=== PATIENT | female | born 1960 | race Native Hawaiian/Other Pacific Islander ===

== ENCOUNTER 2017-05-10 17:17 | Emergency (ER) | payer MEDICAID, MEDICARE ==
[2017-05-10] MEDS ORDERED: HYDROcod/ACETAM 5/325 MG TABLET PO STA (17:34)
--- NOTE | 2017-05-10 17:36 | ED Physician Documentation ---
PD HPI UPPER EXT INJURY - Stated complaint Stated Complaint: LEFT ELBOW PAIN - Chief complaint Chief Complaint: Ext Problem - History obtained from History obtained from: Patient - History of Present Illness Location: Other (57-year-old woman with chronic back and leg pain from arthritis presents with 2 weeks of atraumatic left elbow pain, she points to the olecranon as the site of her pain. There was no specific injury. It is not associated with fevers or chills, she has never had problems with that elbow before. 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 - Present Medications Home Medications: Ambulatory Orders Medication Instructions Recorded Confirmed HYDROcod/ACETAM 5/325 [[place] 5/325] 1 - 2 ea PO Q6H PRN #15 tablet 05/10/17 Meloxicam [Mobic] 7.5 mg PO BIDWM PRN #15 tablet 05/10/17 - Allergies Allergies/Adverse Reactions: Allergies Allergy/AdvReac Type Severity Reaction Status Date / Time No Known Drug Allergies Allergy Verified 05/10/17 17:23 - Social History Does the pt smoke?: Yes Smoking Status: Current every day smoker Does the pt drink ETOH?: No Does the pt have substance abuse?: No - Immunizations Immunizations are current?: Yes - POLST Patient has POLST: No PD ED PE NORMAL - Vitals Vital signs reviewed: Yes - General General: Alert and oriented X 3, No acute distress - Extremities Extremities: Other (Left elbow looks grossly normal, mildly tender over the olecranon. She has good range of motion and and in flexion, but can only extend to about 30 shy of straight.) - Neuro Neuro: Alert and oriented X 3, Normal speech - Psych Psych: Normal mood, Normal affect Results - Vitals Vitals: Vital Signs - 24 hr 05/10/17 17:20 Temperature 36.9 C Heart Rate 112 H Respiratory 18 Rate Blood Pressure 188/102 H O2 Saturation 96 Oxygen O2 Source Room air PD MEDICAL DECISION MAKING - ED course ED course: Tenderness is the worst just medial to the olecranon and she has the worst pain when she forcefully extends her elbow so I suspect she has some tendinitis there. There is no evidence of bursitis or septic joint. She has painless pronation and supination. Departure - Departure Disposition: 01 Home, Self Care Clinical Impression: Left elbow tendinitis Condition: Good Record reviewed to determine appropriate education?: Yes Instructions: ED Tendinitis Calcific Follow-Up: [facility] [Provider Group] Prescriptions: Meloxicam [Mobic] 7.5 mg PO BIDWM PRN #15 tablet PRN Reason: Pain HYDROcod/ACETAM 5/325 [[place] 5/325] 1 - 2 ea PO Q6H PRN #15 tablet PRN Reason: Pain Comments: Your blood pressure was elevated today on check into the emergency department. This does not mean that you have hypertension, it is a common phenomenon to come to the emergency department and have elevated blood pressure. I recommend that she see your primary care physician within the week to have it rechecked when you are feeling better. Do not drink or drive while taking narcotic pain medication. Note that many narcotic pain relievers also contain Tylenol/acetaminophen. Please ensure that your total dose of acetaminophen from all sources does not exceed 3 g (3000 mg) per day. You may get constipated while on this medication. Take a stool softener such as Colace twice a day while you are on it. Also add an ahod-jed-isibkjr laxative such as senna or MiraLAX on any day that you do not have a bowel movement. If you received a narcotic pain medication or sedative while in the emergency department, do not drive for the next 24 hours.
[2017-05-10] MEDS ORDERED: HYDROcod/ACETAM 5/325 MG TABLET ONE (17:40)
[2017-05-10] MEDS ORDERED: HYDROcod/ACET 5/325 Prepack 6 PO STA (18:02)
[2017-05-10] MEDS ORDERED: HYDROcod/ACET 5/325 Prepack 6 PO ONE (18:08)
[2017-05-10 18:16] VITALS: BP 175/95
--- NOTE | 2017-05-10 18:46 | XRAY Preliminary Report ---
Exam: XR Elbow 3 View LT IMPRESSION: Normal elbow radiography. [facility] SITE ID: [id number]
--- NOTE | 2017-05-10 18:49 | XRAY Report ---
EXAM: LEFT ELBOW RADIOGRAPHY EXAM DATE: 05/10/2017 06:02 PM. CLINICAL HISTORY: Pain. COMPARISON: None. TECHNIQUE: 3 views. FINDINGS: Bones: Normal. No fractures or bone lesions. Joints: Normal. No effusion. No subluxation. Soft Tissues: Normal. No soft tissue swelling. IMPRESSION: Normal elbow radiography. [facility] Referring Provider Line: [phone] SITE ID: [id number]
== END 2017-05-10 18:17 | disposition home or self-care (01) ==
LOC: ED 17:17
DX: M77.9 Enthesopathy, unspecified (principal); R03.0 Elevated blood-pressure reading, without diagnosis of hypertension; M19.90 Unspecified osteoarthritis, unspecified site; F17.200 Nicotine dependence, unspecified, uncomplicated
CPT/HCPCS: 73080; 99283; A9270

== ENCOUNTER 2021-01-22 17:10 | Outpatient (CLI) | payer MEDICARE | END 2021-01-22 17:11 | disposition critical access hospital (66) | LOC: EMS 17:10 | DX: R07.9 Chest pain, unspecified (principal); M79.602 Pain in left arm | CPT/HCPCS: A0425; A0427 ==

== ENCOUNTER 2021-03-13 06:39 | Outpatient (CLI) | payer MEDICARE ==
--- NOTE | 2021-03-13 10:49 | Ultrasound Report ---
PROCEDURE: Abdomen Limited INDICATIONS: PAIN BLAT SHOULDER, THYROID NOD, ABN LIVER TEST, C TECHNIQUE: Real-time focused scanning was performed of the abdomen, with image documentation. COMPARISON: None. FINDINGS: Liver is normal in size and show diffusely increased liver parenchymal echotexture suggestive of a he patic steatosis. No discrete hepatic lesion is noted. There is no gallstone. No gallbladder wall thickening or pericholecystic fluid. No sonographic Noguera 's sign. Focal area of comet tail appearance involving nondependent portion of gallbladder wall near fundus. There is no intrahepatic biliary duct dilatation. Common bile duct measures up to 4.4 mm in diameter and is within normal limits. Visualized portion of pancreas shows no gross abnormality. Right kidney measures 11.1 cm in length. There is no renal calculi or hydronephrosis. No solid-appear ing renal lesion. IMPRESSION: 1. Hepatic steatosis, no discrete hepatic lesion. 2. Focal area of comet tail appearance involving nondependent portion of gallbladder wall suggestive of focal adenomyomatosis. No evidence of cholelithiasis or acute cholecystitis. 3. No biliary ductal dilatation. Reviewed by: Win Uribe MD on 03/13/2021 10:48 AM PDT Approved by: Win Uribe MD on 03/13/2021 10:48 AM PDT Station ID: [id number]
--- NOTE | 2021-03-13 10:54 | MRI Report ---
PROCEDURE: Cervical Spine W/O INDICATIONS: PAIN BLAT SHOULDER, THYROID NOD, ABN LIVER TEST, C TECHNIQUE: Noncontrast sagittal T1 spin echo and T2 fast spin echo, sagittal STIR, foraminal oblique sagittal T2 fast spin echo, and axial gradient echo or T2 fast spin echo through the cervical spine. COMPARISON: None. FINDINGS: Image quality: Motion artifact is noted. Alignment and Curvature: There is normal bony alignment. Bone Marrow: Marrow demonstrates normal overall signal. Spinal Cord: Visualized spinal cord has normal size and signal. No cerebellar tonsillar herniation. Paraspinous Soft Tissues: No paravertebral masses. Prevertebral soft tissues are normal in thicknes s. C2-C3: The disc height and disc signal are well preserved. No significant neural foraminal or centr al canal narrowing can be seen. C3-C4: Moderate loss of disc height and signal are seen. Moderate disc osteophyte complex is seen, which is eccentric to the right. Mild to moderate facet hypertrophy is seen. There is moderate to sev ere bilateral neuroforaminal narrowing seen. Moderate central canal narrowing is seen. Associated mass effect is seen upon the ventral spinal cord. C4-C5: At least moderate loss of disc height and disc signal can be seen. Moderate disc osteophyte c omplex is seen, with a central/right disc osteophyte protrusion. Mild to moderate facet hypertrophy i s seen. There is moderate to severe bilateral neuroforaminal narrowing seen. At least moderate centra l canal narrowing is seen, with associated mass effect upon the ventral spinal cord. C5-C6: Moderate loss of disc height and signal are seen. Moderate disc osteophyte complex is seen. Moderate facet hypertrophy is seen. There is moderate to severe left-sided and at least moderate r ight-sided neuroforaminal narrowing seen. At least moderate central canal narrowing is seen. Associa davina mass effect is seen upon the ventral spinal cord. C6-C7: Moderate loss of disc height and signal are seen. Moderate disc osteophyte complex is seen. Moderate facet hypertrophy is seen. There is at least moderate right-sided and mild left-sided ne uroforaminal narrowing seen. Mild to moderate central canal narrowing is seen. C7-T1: No significant abnormality is seen. IMPRESSION: Multiple levels of relatively prominent cervical spine degenerative change can be seen. Reviewed by: Juan Carlos Skinner MD on 03/13/2021 9:53 AM GREG Approved by: Juan Carlos Skinner MD on 03/13/2021 9:53 AM GREG Station ID: [id number]
--- NOTE | 2021-03-13 10:55 | Ultrasound Report ---
PROCEDURE: Head or Neck Soft Tissue INDICATIONS: PAIN BLAT SHOULDER, THYROID NOD, ABN LIVER TEST, C TECHNIQUE: Real-time scanning was performed of the thyroid gland, with image documentation. COMPARISON: None FINDINGS: Right: Thyroid lobe measures 5 x 1.7 x 2.6 cm, and is homogeneous in echotexture. Left: Thyroid lobe measures 4.4 x 1.6 x 1.8 cm, and is homogenous in echotexture. Isthmus: 3 mm thick. Nodule number: One Location: Upper pole of right thyroid lobe Size: 0.5 x 0.3 x 0.5 cm. Composition: Solid Echogenicity: Hypoechoic Shape: Wider than tall. Margins: Smooth Echogenic foci: None Total points: 4 ACR TI-RADS category: 4, moderately suspicious. Nodule number: Two Location: Mid pole of right thyroid lobe Size: 0.5 x 0.2 x 0.5 cm. Composition: Solid Echogenicity: Hypoechoic Shape: wider than tall. Margins: Smooth Echogenic foci: None Total points: 4 ACR TI-RADS category: 4, moderately suspicious. Nodule number: Three Location: Upper to mid pole of right thyroid lobe lateral aspect Size: 0.5 x 0.3 x 0.4 cm. Composition: Solid Echogenicity: Hypoechoic Shape: wider than tall. Margins: Smooth Echogenic foci: Size Total points: 4 ACR TI-RADS category: 4, moderately suspicious Nodule number: Four Location: Right side of isthmus Size: 0.4 x 0.2 x 0.4 cm. Composition: Solid Echogenicity: Size Shape: wider than tall. Margins: Smooth Echogenic foci: None Total points: 4 ACR TI-RADS category: 4, moderately suspicious. Nodule number: 5 Location: Upper pole left thyroid lobe Size: 1 x 0.5 x 0.8 cm. Composition: Solid Echogenicity: Size Shape: wider than tall. Margins: Smooth Echogenic foci: None Total points: 4 ACR TI-RADS category: 4, moderately suspicious. Nodule number: 6 Location: Lower pole of left thyroid lobe Size: 0.4 x 0.3 x 0.4 cm. Composition: Solid Echogenicity: Size Shape: wider than tall. Margins: Smooth Echogenic foci: None Total points: 4 ACR TI-RADS category: 4, moderately suspicious. IMPRESSION: Multiple moderately suspicious small bilateral thyroid nodules as described above measur es up to 1 cm in size. Sonographic follow-up is recommended. ACR TI-RADS definitions and recommendations: TI-RADS 1 (benign): 0 points. FNA not needed. TI-RADS 2 (not suspicious): 2 points. FNA not needed. TI-RADS 3 (mildly suspicious): 3 points. ? FNA if 2.5 cm or larger, follow up if 1.5 cm or larger (at 1, 3, and 5 years). TI-RADS 4 (moderately suspicious): 4-6 points. ? FNA if 1.5 cm or larger, follow up if 1 cm or larger (at 1, 2, 3, and 5 years). TI-RADS 5 (highly suspicious): 7 points or more. ? FNA if 1 cm or larger, follow up if 0.5 cm or larger (every year for 5 years). Reviewed by: Win Uribe MD on 03/13/2021 10:54 AM PDT Approved by: Win Uribe MD on 03/13/2021 10:54 AM PDT Station ID: [id number]
--- NOTE | 2021-03-13 13:13 | XRAY Report ---
PROCEDURE: Shoulder 3 View BILAT INDICATIONS: BILAT SHOULDER PX TECHNIQUE: 3 views of the right shoulder and left shoulder were acquired. COMPARISON: None. FINDINGS: Bones: No fractures or dislocations. No suspicious bony lesions. Visualized ribs appear intact. Mi ld bilateral shoulder acromioclavicular joint osteoarthritis. Soft tissues: Small calcification noted adjacent to the lateral margin of the left humeral head brandon rning for calcific tendinitis.. IMPRESSION: 1. Mild bilateral acromioclavicular joint osteoarthritis. 2. Mild left shoulder rotator cuff calcific tendinitis. Reviewed by: Cathy Daely MD, PhD on 03/13/2021 1:12 PM PDT Approved by: Cathy Daley MD, PhD on 03/13/2021 1:12 PM PDT Station ID: [id number]
== END 2021-03-13 06:40 | disposition home or self-care (01) ==
LOC: DI 06:39
PROVIDERS: ATTEND Nurse Practitioner Family
DX: M47.812 Spondylosis without myelopathy or radiculopathy, cervical region (principal); M50.31 Other cervical disc degeneration, high cervical region; M48.02 Spinal stenosis, cervical region; K76.0 Fatty (change of) liver, not elsewhere classified; R93.2 Abnormal findings on diagnostic imaging of liver and biliary tract; E04.2 Nontoxic multinodular goiter; M19.012 Primary osteoarthritis, left shoulder; M19.011 Primary osteoarthritis, right shoulder; M75.82 Other shoulder lesions, left shoulder

== ENCOUNTER 2021-04-10 10:18 | Outpatient (CLI) | payer MEDICARE ==
--- NOTE | 2021-04-26 13:39 | Mammography Report ---
BILATERAL DIGITAL SCREENING MAMMOGRAM 3D/2D: 04/10/2021 CLINICAL: Routine screening. No prior exams were available for comparison. There are scattered fibroglandular elements in both br easts. No significant masses, calcifications, or other findings are seen in either breast. IMPRESSION: NEGATIVE There is no mammographic evidence of malignancy. A 1 year screening mammogram is recommended. This exam was interpreted at Station ID: [id number]. NOTE: For mammograms, a report in lay terms will be sent to the patient. Approximately 15% of breast malignancies will not be visualized mammographically. In the management of a palpable breast mass, a negative mammogram must not discourage biopsy of a clinically suspicious lesion. Electronically Signed By: Vaughn east/ishmael:04/26/2021 07:17:39 ACR BI-RADS Category 1: Negative [id number] PARENCHYMAL PATTERN: (A) - The breast(s) demonstrate(s) scattered fibroglandular densities. BI-RADS CATEGORY: (1) - 1 RECOMMENDATION: (ANNUAL) - Recommend routine annual screening mammography. [id number] 1 year screening LATERALITY: (B)
== END 2021-04-10 10:19 | disposition home or self-care (01) ==
LOC: DI 10:18
PROVIDERS: ATTEND Nurse Practitioner Family
DX: Z12.31 Encounter for screening mammogram for malignant neoplasm of breast (principal)

== ENCOUNTER 2021-04-10 10:20 | Outpatient (CLI) | payer MEDICARE ==
--- NOTE | 2021-04-10 15:56 | DEXA Report ---
PROCEDURE: Dexa Spine and/or Hip INDICATIONS: ASYMPTOMATIC MENOPAUSAL STATE TECHNIQUE: Dual energy x-ray absorptiometry (DXA) was performed on a ebridge System. Regions measur ed are the AP Spine, femoral neck, and if needed forearm. COMPARISON: None. 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 Patients with diagnosis of osteoporosis or osteopenia should have regular bone mineral density assess ment. For those eligible for Medicare, routine testing is allowed once every 2 years. Testing frequ ency can be increased for patients who have rapidly progressing disease or for those who are receivin g medical therapy to restore bone mass. Reviewed by: Kaylynn Eid MD on 04/10/2021 3:54 PM PDT Approved by: Kaylynn Eid MD on 04/10/2021 3:54 PM PDT Station ID: [id number]
== END 2021-04-10 10:21 | disposition home or self-care (01) ==
LOC: DI 10:20
PROVIDERS: ATTEND Nurse Practitioner Family
DX: Z78.0 Asymptomatic menopausal state (principal); M81.0 Age-related osteoporosis without current pathological fracture

== ENCOUNTER 2021-04-10 13:45 | Emergency (ER) | payer MEDICARE ==
[2021-04-10 13:54] VITALS: BP 142/73
[2021-04-10 14:27] LABS: BASOPHILS % (AUTO) 0.3 %; EOSINOPHILS # (AUTO) 0.1 10^3/uL (0.0-0.7); HCT - HEMATOCRIT 37.4 % (37.0-47.0); HGB - HEMOGLOBIN 12.1 g/dL (12.0-16.0); LYMPHOCYTES # (AUTO) 2.1 10^3/uL (1.5-3.5); LYMPHOCYTES % (AUTO) 29.2 %; MEAN CORPUSCULAR HEMOGLOBIN 28.3 pg (27.0-31.0); MEAN CORPUSCULAR HGB CONC 32.4 g/dL (32.0-36.0); MEAN CORPUSCULAR VOLUME 87.6 fL (81.0-99.0); MEAN PLATELET VOLUME 9.9 fL (7.9-10.8); MONOCYTES # (AUTO) 0.4 10^3/uL (0.0-1.0); MONOCYTES % (AUTO) 5.2 %; NEUTROPHILS # (AUTO) 4.5 10^3/uL (1.5-6.6); PLT - PLATELET COUNT 284 10^3/uL (130-450); RED BLOOD COUNT 4.27 10^6/uL (4.20-5.40); RED CELL DISTRIBUTION WIDTH 14.6 % (12.0-15.0); WHITE BLOOD COUNT 7.1 x10^3/uL (4.8-10.8)
--- NOTE | 2021-04-10 14:37 | XRAY Report ---
PROCEDURE: Chest 1 View X-Ray INDICATIONS: Chest pain TECHNIQUE: One view of the chest was acquired. COMPARISON: None. FINDINGS: Surgical changes and devices: None. Lungs and pleura: There are linear opacities in the left lung base likely representing atelectasis. Mild pulmonary vascular prominence is suggestive of mild edema. The medial lung apices are partially obscured by patient's neck soft tissues. No pleural effusions or definite pneumothorax. Mediastinum: Mediastinal contours appear normal. Heart size is normal. Bones and chest wall: No suspicious bony lesions. Overlying soft tissues appear unremarkable. IMPRESSION: 1. Prominent vascular prominence suggestive of mild edema. 2. Linear left basilar opacities likely represent atelectasis, versus developing consolidation. Reviewed by: Dejuan Hoffman MD on 04/10/2021 2:36 PM PDT Approved by: Dejuan Hoffman MD on 04/10/2021 2:36 PM PDT Station ID: [id number]
[2021-04-10 14:43] LABS: ALBUMIN 3.8 g/dL (3.2-5.5); ALBUMIN/GLOBULIN RATIO 1.1 (1.0-2.2); BILIRUBIN,TOTAL 1.2 mg/dL (0.2-1.0); CALCIUM 9.4 mg/dL (8.5-10.3); CREATININE 0.8 mg/dL (0.4-1.0); POTASSIUM 3.5 mmol/L (3.5-5.0); TOTAL PROTEIN 7.4 g/dL (6.7-8.2)
--- NOTE | 2021-04-10 14:43 | ED Physician Documentation ---
PD HPI CHEST PAIN - Stated complaint Stated Complaint: CHEST PX - Chief complaint Chief Complaint: Cardiac - History obtained from History obtained from: Patient - History of Present Illness Timing - onset: Today Timing - onset during: Light activity (she had mammogram and then was driving home and felt onset of aching pain left sternal area. No breast tenderness. Had heart stents x 3 in December, so concerned about CA.) Timing - details: Abrupt onset, Now resolved Quality: Aching Location: Substernal, Left chest Radiation: No: Neck, Back Worsened by: No: Exertion, Inspiration, Movement, Palpation Associated symptoms: No: Shortness of air, Feeling faint / dizzy, Palpitations Similar symptoms before: Has not had sx before Review of Systems Constitutional: denies: Fever, Chills Nose: denies: Rhinorrhea / runny nose, Congestion Throat: denies: Sore throat Respiratory: denies: Cough GI: denies: Abdominal Pain, Nausea, Vomiting Skin: denies: Rash, Lesions Musculoskeletal: denies: Extremity swelling Neurologic: denies: Focal weakness, Numbness PD PAST MEDICAL HISTORY - Past Medical History Cardiovascular: Coronary artery disease Respiratory: None Neuro: None Endocrine/Autoimmune: None Musculoskeletal: Other - Past Surgical History 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: Yes - POLST Patient has POLST: No PD ED PE NORMAL - Vitals Vital signs reviewed: Yes - General General: Alert and oriented X 3, No acute distress, Well developed/nourished - HEENT HEENT: Pharynx benign - Neck Neck: Supple, no meningeal sign, No adenopathy - Cardiac Cardiac: RRR, No murmur - Respiratory Respiratory: Clear bilaterally, Other (no chestwall tenderness) - Abdomen Abdomen: Soft, Non tender - Derm Derm: Normal color, Warm and dry - Extremities Extremities: No edema, No calf tenderness / cord - Neuro Neuro: Alert and oriented X 3, No motor deficit, Normal speech Results - Vitals Vitals: Oxygen O2 Source Room air - EKG (time done) 13:55 Rate: Rate (enter#) (91) Rhythm: NSR Molt: Normal Intervals: Normal CO QRS: Normal Ischemia: Normal ST segments. No: ST elevation c/w ischemia, ST depression - Labs Labs: Laboratory Tests 04/10/21 04/10/21 04/10/21 14:18 14:18 14:18 WBC 7.1 RBC 4.27 Hgb 12.1 Hct 37.4 MCV 87.6 MCH 28.3 MCHC 32.4 RDW 14.6 Plt Count 284 MPV 9.9 Neut # (Auto) 4.5 Lymph # (Auto) 2.1 [place] # (Auto) 0.4 Eos # (Auto) 0.1 Baso # (Auto) 0.0 Absolute Nucleated RBC 0.00 Nucleated RBC % 0.0 Sodium 141 Potassium 3.5 Chloride 104 Carbon Dioxide 26 Anion Gap 11.0 BUN 15 Creatinine 0.8 Estimated GFR (MDRD) 73 L Glucose 194 H Calcium 9.4 Total Bilirubin 1.2 H AST 20 ALT 28 Alkaline Phosphatase 107 Troponin I High Sens 6.5 Total Protein 7.4 Albumin 3.8 Globulin 3.6 Albumin/Globulin Ratio 1.1 Lipase 44 - Rads (name of study) chest xray Radiology: Prelim report reviewed, See rad report PD MEDICAL DECISION MAKING - ED course Complexity details: reviewed results, re-evaluated patient, considered differential (chest pain transient. post stenting. Can check ECG and troponin. ), d/w patient Departure - Departure Disposition: 01 Home, Self Care Clinical Impression: Status post coronary artery stent placement Chest pain Qualifiers: Chest pain type: precordial pain Qualified Code(s): R07.2 - Precordial pain Condition: Stable Record reviewed to determine appropriate education?: Yes Follow-Up: KAMILLE GUZMAN ARNP [Primary Care Provider] - Comments: Your chest x-ray, EKG, blood tests are normal including a troponin which would evaluate for signs of heart attack. No signs of stent failure or reocclusion based on these test. No other acute abnormality is noted. Unclear what the cause of your pain episode was. I would not necessarily anticipate further episodes. Follow-up with recurring episodes in the near future Discharge Date/Time: 04/10/21 15:23
== END 2021-04-10 15:23 | disposition home or self-care (01) ==
LOC: ED 13:45
DX: R07.2 Precordial pain (principal); Z95.818 Presence of other cardiac implants and grafts; F17.200 Nicotine dependence, unspecified, uncomplicated; Z78.0 Asymptomatic menopausal state; M81.0 Age-related osteoporosis without current pathological fracture
CPT/HCPCS: 36415; 80053; 83690; 84484; 85025; 93005; 99284

== ENCOUNTER 2021-10-09 16:47 | Emergency (ER) | payer MEDICARE | END 2021-10-09 18:00 | disposition left against medical advice (07) | LOC: ED 16:47 | DX: Z53.21 Procedure and treatment not carried out due to patient leaving prior to being seen by health care provider (principal) ==

== ENCOUNTER 2021-10-09 19:08 | Emergency (ER) | payer MEDICARE ==
[2021-10-09] MEDS ORDERED: ACETAMINOPHEN 325 MG TABLET PO STA (21:01)
[2021-10-09] MEDS ORDERED: SODIUM CHLORIDE 0.9% 500 ML IV STA (21:03)
[2021-10-09] MEDS ORDERED: ONDANSETRON 4 MG/2 ML VIAL IVP STA (21:04)
[2021-10-09 21:25] LABS: BASOPHILS % (AUTO) 0.1 %; EOSINOPHILS % (AUTO) 0.1 %; HCT - HEMATOCRIT 37.7 % (37.0-47.0); HGB - HEMOGLOBIN 12.4 g/dL (12.0-16.0); LYMPHOCYTES # (AUTO) 1.8 10^3/uL (1.5-3.5); LYMPHOCYTES % (AUTO) 23.6 %; MEAN CORPUSCULAR HEMOGLOBIN 27.9 pg (27.0-31.0); MEAN CORPUSCULAR HGB CONC 32.9 g/dL (32.0-36.0); MEAN CORPUSCULAR VOLUME 84.9 fL (81.0-99.0); MEAN PLATELET VOLUME 10.4 fL (7.9-10.8); MONOCYTES # (AUTO) 0.6 10^3/uL (0.0-1.0); MONOCYTES % (AUTO) 7.3 %; NEUTROPHILS # (AUTO) 5.3 10^3/uL (1.5-6.6); NEUTROPHILS % (AUTO) 68.6 %; PLT - PLATELET COUNT 232 10^3/uL (130-450); RED BLOOD COUNT 4.44 10^6/uL (4.20-5.40); RED CELL DISTRIBUTION WIDTH 14.5 % (12.0-15.0); WHITE BLOOD COUNT 7.8 x10^3/uL (4.8-10.8)
[2021-10-09 21:38] LABS: ALBUMIN 3.5 g/dL (3.2-5.5); ALBUMIN/GLOBULIN RATIO 0.8 (1.0-2.2); BILIRUBIN,TOTAL 1.6 mg/dL (0.2-1.0); CREATININE 0.8 mg/dL (0.4-1.0); POTASSIUM 3.7 mmol/L (3.5-5.0); VBG BASE EXCESS -0.7 mmol/L (-2 - +2); VBG HCO3 24.3 mmol/L (23-28); VBG OXYGEN SATURATION 74.1 % (60-80); VBG PCO2 41.5 mmHg (41-51); VBG PH 7.386 (7.31-7.41); VBG PO2 38.4 mmHg (25-47); VBG TOTAL CO2 25.6 mmol/L (24-29)
--- NOTE | 2021-10-09 22:12 | ED Physician Documentation ---
History of Present Illness - Stated complaint Stated Complaint: c+,weak,cough,headache - Chief complaint Chief Complaint: General - History obtained from History obtained from: Patient - Additonal information Additional information: 61yF with pmh covid-19 diagnosed 5 days ago p/w nbnb n/v, soa, nonproductive cough, back pain and myalgias progressive since that time. also with decreased po intake. 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 : None HEENT: None Psych: None Musculoskeletal: Other Derm: None - Past Surgical History Past Surgical History: Yes /CHIEF CATALYST OPERATOR: Tubal ligation - Present Medications Home Medications: Ambulatory Orders Medication Instructions Recorded Confirmed HYDROcod/ACETAM 5/325 [[place] 5/325] 1 - 2 ea PO Q6H PRN #15 tablet 05/10/17 Meloxicam [Mobic] 7.5 mg PO BIDWM PRN #15 tablet 05/10/17 Ondansetron Odt [Zofran] 4 mg TL Q6H PRN #10 tablet 10/09/21 - Allergies Allergies/Adverse Reactions: Allergies Allergy/AdvReac Type Severity Reaction Status Date / Time No Known Drug Allergies Allergy Verified 10/09/21 19:20 - Social History Does the pt smoke?: Yes Smoking Status: Current every day smoker Does the pt drink ETOH?: No Does the pt have substance abuse?: No - Immunizations Immunizations are current?: Yes - POLST Patient has POLST: No PD ED PE NORMAL - Vitals Vital signs reviewed: Yes - General General: Alert and oriented X 3, No acute distress, Well developed/nourished - HEENT HEENT: Atraumatic, PERRL, EOMI - Neck Neck: Supple, no meningeal sign - Cardiac Cardiac: RRR - Respiratory Respiratory: Other (BL coarse breath sounds) - Abdomen Abdomen: Non tender, Non distended - Derm Derm: Normal color, Warm and dry - Extremities Extremities: No edema, No calf tenderness / cord - Neuro Neuro: No motor deficit, No sensory deficit - Psych Psych: Normal mood, Normal affect Results - Vitals Vitals: Vital Signs - 24 hr 10/09/21 10/09/21 10/09/21 19:16 19:52 21:08 Temperature 36.0 C L Heart Rate 100 95 94 Respiratory 20 Rate Blood Pressure 143/79 H 138/73 H O2 Saturation 92 94 96 10/09/21 22:33 Temperature Heart Rate 87 Respiratory 16 Rate Blood Pressure 121/63 O2 Saturation 94 Oxygen O2 Source Room air - Labs Labs: Laboratory Tests 10/09/21 10/09/21 10/09/21 21:15 21:15 21:15 WBC 7.8 RBC 4.44 Hgb 12.4 Hct 37.7 MCV 84.9 MCH 27.9 MCHC 32.9 RDW 14.5 Plt Count 232 MPV 10.4 Neut # (Auto) 5.3 Lymph # (Auto) 1.8 Emanuel # (Auto) 0.6 Eos # (Auto) 0.0 Baso # (Auto) 0.0 Absolute Nucleated RBC 0.00 Nucleated RBC % 0.0 VBG pH 7.386 VBG pCO2 41.5 VBG pO2 38.4 VBG HCO3 24.3 VBG Total CO2 25.6 VBG O2 Saturation 74.1 VBG Base Excess -0.7 Sodium 138 Potassium 3.7 Chloride 102 Carbon Dioxide 26 Anion Gap 10.0 BUN 22 H Creatinine 0.8 Estimated GFR (MDRD) 73 L Glucose 113 H Calcium 9.0 Total Bilirubin 1.6 H AST 22 ALT 25 Alkaline Phosphatase 58 Total Protein 8.0 Albumin 3.5 Globulin 4.5 H Albumin/Globulin Ratio 0.8 L Lipase 42 PD MEDICAL DECISION MAKING - ED course ED course: 61yF with pmh htn, hld, cad s/p stents, p/w covid-19 X 5 days with worsening n/v today. patient states the main reason she came in was nausea but also has been having dry cough, body aches, subjective dyspnea that is nonworsening. denies leg swelling, calf pain, hemoptysis. also with diarrhea that is nonbloody. patient with benign labs. evidence of covid-19 on cxr. nausea well controlled. plan to dc home with return precautions and outpatient f/u with pmd via telehealth. Departure - Departure Disposition: 01 Home, Self Care Clinical Impression: Nausea and vomiting, Diarrhea, Cough Condition: Stable Instructions: ED Nausea Vomiting Prescriptions: Ondansetron Odt [Zofran] 4 mg TL Q6H PRN #10 tablet PRN Reason: Nausea / Vomiting Comments: You were seen in the emergency department for symptoms related to covid-19. Please follow up with your primary doctor by telehealth and flower buncher or picker your prescription for zofran antinausea medication. Stay well hydrated and get lots of rest. Return to the ED if you have new or worsening symptoms or other concerns. Discharge Date/Time: 10/09/21 23:16
[2021-10-09 22:35] VITALS: BP 121/63
--- NOTE | 2021-10-09 23:34 | XRAY Report ---
PROCEDURE: Chest 1 View X-Ray INDICATIONS: soa, cough covid TECHNIQUE: One view of the chest was acquired. COMPARISON: 04/10/2021 FINDINGS: Surgical changes and devices: None. Lungs and pleura: No pleural effusions or pneumothorax. Bibasilar airspace opacities consistent wit h mild edema. There is bibasilar atelectasis. Mediastinum: Mediastinal contours appear normal. Heart size is normal. Bones and chest wall: No suspicious bony lesions. Overlying soft tissues appear unremarkable. IMPRESSION: 1. Bibasilar airspace opacities consistent with atelectasis. 2. Airspace opacities in the lower lung [place] consistent with mild edema. Reviewed by: Dave Chery on 10/09/2021 11:33 PM PST Approved by: Dave Chery on 10/09/2021 11:33 PM [facility] Station ID: [id number]
== END 2021-10-09 23:16 | disposition home or self-care (01) ==
LOC: ED 19:08
DX: U07.1 COVID-19 (principal); I10 Essential (primary) hypertension; Z95.5 Presence of coronary angioplasty implant and graft; R11.2 Nausea with vomiting, unspecified; R19.7 Diarrhea, unspecified; F17.200 Nicotine dependence, unspecified, uncomplicated
CPT/HCPCS: 36415; 71045; 80053; 82803; 83690; 85025; 96361; 96374; 99284; A9270

== ENCOUNTER 2022-02-26 08:21 | Outpatient (CLI) | payer MEDICARE ==
--- NOTE | 2022-02-26 12:20 | XRAY Report ---
PROCEDURE: Shoulder 3 View LT INDICATIONS: Left shoulder pain. TECHNIQUE: 3 views of the shoulder were acquired. COMPARISON: Left shoulder radiographs 03/13/2021. FINDINGS: Bones: No fractures or dislocations. No suspicious bony lesions. Visualized ribs appear intact. M ild AC joint hypertrophy. Soft tissues: No suspicious soft tissue calcifications. Findings suspicious for calcific tendinopath y on the previous study not well-visualized on the current exam. IMPRESSION: 1. No acute osseous abnormality. 2. Mild AC joint degenerative changes. Reviewed by: Hardeep Luo MD on 02/26/2022 8:56 AM PDT Approved by: Hardeep Luo MD on 02/26/2022 8:56 AM PDT Station ID: [id number]
== END 2022-02-26 08:22 | disposition home or self-care (01) ==
LOC: DI 08:21
PROVIDERS: ATTEND Nurse Practitioner Family
DX: M19.012 Primary osteoarthritis, left shoulder (principal)

== ENCOUNTER 2023-06-12 11:58 | Outpatient (CLI) | payer MEDICARE ==
--- NOTE | 2023-06-12 13:22 | XRAY Report ---
PROCEDURE: Ankle 3 View RT INDICATIONS: PAIN IN RIGHT ANKLE, LOW BACK PAIN, PAIN IN RIGHT HIP TECHNIQUE: 3 views of the ankle were acquired. COMPARISON: None. FINDINGS: Bones: No fractures or dislocations. Ankle mortise is normally aligned. No suspicious bony lesions . Soft tissues: No tibiotalar joint effusion. Achilles tendon appears normal. IMPRESSION: No acute bony abnormality. Reviewed by: Parrish Chavez MD on 06/12/2023 1:20 PM PDT Approved by: Parrish Chavez MD on 06/12/2023 1:20 PM PDT Station ID: [id number]
--- NOTE | 2023-06-12 13:24 | XRAY Report ---
PROCEDURE: Lumbar Spine 2 View INDICATIONS: PAIN IN RIGHT ANKLE, LOW BACK PAIN, PAIN IN RIGHT HIP TECHNIQUE: 2 views of the lumbar spine were acquired. COMPARISON: Same day pelvic and right hip radiographs. FINDINGS: Bones: 5 [id number] vertebrae are present. Disc space height loss most pronounced at L4-L5 and L5-S1. Mild degenerative changes. There is normal bony alignment. No vertebral body compression frac tures. No suspicious bony lesions. Soft tissues: Overlying bowel gas pattern is normal. No suspicious soft tissue calcifications. IMPRESSION: Mild degenerative changes. Reviewed by: Parrish Chavez MD on 06/12/2023 1:23 PM PDT Approved by: Parrish Chavez MD on 06/12/2023 1:23 PM PDT Station ID: [id number]
--- NOTE | 2023-06-12 13:29 | XRAY Report ---
PROCEDURE: Hip w/Pelvis 2-3V RT INDICATIONS: PAIN IN RIGHT ANKLE, LOW BACK PAIN, PAIN IN RIGHT HIP TECHNIQUE: AP pelvis with lateral view(s) of the right hip(s). COMPARISON: Same day lumbar spine radiographs. FINDINGS: Bones: No fractures or dislocations. No suspicious bony lesions. Soft tissues: No suspicious soft tissue calcifications or masses. IMPRESSION: No significant hip DJD. Reviewed by: Parrish Chavez MD on 06/12/2023 1:28 PM PDT Approved by: Parrish Chavez MD on 06/12/2023 1:28 PM PDT Station ID: [id number]
== END 2023-06-12 11:59 | disposition home or self-care (01) ==
LOC: DI 11:58
PROVIDERS: ATTEND Registered Nurse
DX: M25.571 Pain in right ankle and joints of right foot (principal); M25.551 Pain in right hip; M47.816 Spondylosis without myelopathy or radiculopathy, lumbar region; M47.817 Spondylosis without myelopathy or radiculopathy, lumbosacral region